=== PATIENT | male | born 1995 | race American Indian/Alaskan Native ===

== ENCOUNTER 2017-06-18 01:26 | Emergency (ER) | payer OTHER ==
--- NOTE | 2017-06-18 07:00 | Emergency Department Report ---
Chief Complaint: Back Pain/Injury Stated Complaint: BACK PAIN Time Seen by Provider: 06/18/17 06:56 - HPI History of Present Illness: Patient reports that he has back pain that's been ongoing since high school. And it's triggered by sleeping on hard surface. Patient noted to have multiple and I asked him if he is homeless and he reports that he has. He said he's been laying on the hard surface and his back is hurting. He reports that pain is radiating down his feet. Pain to his left foot is worse than right foot. This has been ongoing for patient since high school. He denies any urinary burning frequency or urgency. - ROS Review of Systems: All Systems is negative unless stated in HPI above - Exam Vital Signs: Vital Signs 06/18/17 06/18/17 06/18/17 01:35 01:40 05:05 Temperature 98 F 98 F Pulse Rate 108 H 108 H Respiratory 20 18 Rate Blood Pressure 139/68 139/68 Blood Pressure 139/68 [Right] O2 Sat by Pulse 97 97 Oximetry Physical Exam: Gen.: 21-year-old male well-nourished well-developed in no acute distress. Back: Normal inspection and full range of motion. Patient able to ambulate without any difficulties. EXT:No Clubbing, cyanosis or edema. +2 pulses to extremities. No neurovascular compromise MSE screening note: Focused history and physical exam performed. Due to findings the following was ordered: Motrin and Decadron ordered for back pain ED Medical Decision Making - Medical Decision Making MDM: Patient screened by provider in triage area. Appropriate protocol initiated and patient to be seen by production tool engineer ED Disposition for MSE Condition: Stable Referrals: MIGUEL CARUSO MD [Primary Care Provider] - 3-5 Days
[2017-06-18] MEDS ORDERED: MOTRIN PO ONE (07:01)
[2017-06-18] MEDS ORDERED: DELTASONE PO ONE (07:01)
--- NOTE | 2017-06-18 07:24 | Emergency Department Report ---
HPI - General Chief Complaint: Back Pain/Injury Time Seen by Provider: 06/18/17 06:56 - HPI HPI: he is a 21-year-old male presents to ED complaining of lower back pain gets worse with laying on hard surfaces. Patient states he is to have his for years. He states that sometimes she feels pain in his foot as well. Patient denies any trauma or fall or injuries to the back. He denies fevers/ chills/nausea/vomiting/abdominal pain/chest pain/difficulty urinating, difficulty with bowel movements. ED Past Medical Hx - Past Medical History Previous Medical History?: Yes Hx Asthma: Yes - Surgical History Past Surgical History?: No - Social History Smoking Status: Current Every Day Smoker Substance Use Type: None - Medications Home Medications: Home Medications Medication Instructions Recorded Confirmed Last Taken Type Ibuprofen [Motrin] 600 mg PO Q8H PRN #30 tablet 06/18/17 Unknown Rx methOCARBAMOL [Robaxin TAB] 500 mg PO BID #20 tab 06/18/17 Unknown Rx ED Review of Systems ROS: Stated complaint: BACK PAIN Other details as noted in HPI Constitutional: denies: chills, fever Eyes: denies: eye pain, eye discharge, vision change ENT: denies: ear pain, throat pain Respiratory: denies: cough, shortness of breath, wheezing Cardiovascular: denies: chest pain, palpitations Endocrine: no symptoms reported Gastrointestinal: denies: abdominal pain, nausea, vomiting, diarrhea Genitourinary: denies: urgency, dysuria, frequency Musculoskeletal: myalgia. denies: back pain, joint swelling, arthralgia Skin: denies: rash, lesions, pruritus Neurological: denies: headache, weakness, numbness, paresthesias, confusion Psychiatric: denies: anxiety, depression Hematological/Lymphatic: denies: easy bleeding, easy bruising Physical Exam - Physical Exam Vital Signs: Vital Signs 06/18/17 06/18/17 06/18/17 01:35 01:40 05:05 Temperature 98 F 98 F Pulse Rate 108 H 108 H Respiratory 20 18 Rate Blood Pressure 139/68 139/68 Blood Pressure 139/68 [Right] O2 Sat by Pulse 97 97 Oximetry Physical Exam: GENERAL: Alert and oriented x3, no apparent distress, Normal Gait, atraumatic. HEAD: Head is normocephalic and a-traumatic. EYES: Extra ocular muscles are intact. Pupils are equal, round, and reactive to light and accommodation. LUNGS: Symetrical with respiration, No wheezing, no rales or crackles, CTAB. HEART: S1, S2 present, regular rate and rhythm without murmur, no rubs, no gallops. Non tender to palpation ABDOMEN: No organomegaly was noted,Positive bowel sounds, soft, and non- distended. . Nontender to palpation on all Quadrants, NO CVA tenderness. BACK: Full range of motion, no spinal tenderness, nontender to palpation. EXTREMITIES/MUSCULOSKELETAL: No cyanosis, clubbing, rash, lesions or edema. Full ROM bilaterally. UE/LE Pulses 2+ bilaterally. LE and UE 5+ strength bilaterally, straight leg raise negative bilaterally NEUROLOGIC: The patient is cooperative with no focal neurologic deficits. Normal speech. Normal sensation in bilateral upper and lower extremities, No loss of sensation, SKIN: Warm and dry, No lesions, No ulceration or induration present. ED Course Vital Signs 06/18/17 06/18/17 06/18/17 01:35 01:40 05:05 Temperature 98 F 98 F Pulse Rate 108 H 108 H Respiratory 20 18 Rate Blood Pressure 139/68 139/68 Blood Pressure 139/68 [Right] O2 Sat by Pulse 97 97 Oximetry ED Medical Decision Making - Medical Decision Making 21-year-old stable male in no acute distress presents with lower back pain ED course: Patient received Motrin prednisone ED pain I discussed with the patient to follow up with her physician as referred. I discussed with the patient to gain a heating pad and applied some lower back muscles to help with the pain. I discussed with the patient to return to ED if worsening symptoms. Vital signs are normal. Patient is in no acute distress. Critical care attestation.: If time is entered above; I have spent that time in minutes in the direct care of this critically ill patient, excluding procedure time. ED Disposition Clinical Impression: Strain of muscle, fascia and tendon of lower back, initial encounter, Lumbar radiculopathy, chronic Disposition: DC- TO HOME OR SELFCARE Is pt being admited?: No Does the pt Need Aspirin: No Condition: Stable Instructions: Muscle Strain (ED), Low Back Strain (ED), Musculoskeletal Pain ( ED) Additional Instructions: Make sure to follow up with the primary care physician as discussed. Take all your medications as you've been prescribed. If you have any worsening symptoms or develop new symptoms please return to ED immediately. Prescriptions: Ibuprofen [Motrin] 600 mg PO Q8H PRN #30 tablet PRN Reason: Pain methOCARBAMOL [Robaxin TAB] 500 mg PO BID #20 tab Referrals: MIGUEL CARUSO MD [Primary Care Provider] - 3-5 Days [facility] [Outside] - 3-5 Days [facility] [Outside] - 3-5 Days [facility] [Outside] - 3-5 Days Time of Disposition: 07:33
[2017-06-18 08:41] VITALS: BP 110/45
== END 2017-06-18 08:40 | disposition home or self-care (01) ==
LOC: ED 01:26
DX: S39.012A Strain of muscle, fascia and tendon of lower back, initial encounter (principal); M54.16 Radiculopathy, lumbar region; F17.200 Nicotine dependence, unspecified, uncomplicated; X58.XXXA Exposure to other specified factors, initial encounter; Y93.89 Activity, other specified; Y92.89 Other specified places as the place of occurrence of the external cause; Y99.8 Other external cause status
CPT/HCPCS: 99282; J7512